=== PATIENT | female | born 1955 | race Caucasian/White ===

== ENCOUNTER 2020-02-10 17:34 | Emergency (ER) | payer MEDICARE ==
[~2020-02-10] VITALS: Ht 170.2 cm; Wt 84.1 kg
[~2020-02-10 17:34] MED LIST: HYDR200T72 PO; TRAM50TA2 PO
[2020-02-10] MEDS ORDERED: PLEASE ENTER HEIGHT AND WEIGHT MC SCH (18:00)
[2020-02-10] MEDS ORDERED: HYDROcodone/APAP 5/325 TABLET PO PRN (18:00)
[2020-02-10 19:11] VITALS: BP 168/97
[2020-02-10] MEDS ORDERED: OXYcodone/APAP 5/325MG TABLET PO ONE (20:00)
[2020-02-10] MEDS ORDERED: OXYcodone/APAP 5/325MG TABLET ONE (20:13)
[2020-02-10] MEDS ORDERED: HYDROcodone/APAP 5/325 TABLET ONE (20:20)
== END 2020-02-10 20:28 | disposition home or self-care (01) ==
LOC: ED 18:45
DX: S82.042A Displaced comminuted fracture of left patella, initial encounter for closed fracture (principal); S80.01XA Contusion of right knee, initial encounter; F17.210 Nicotine dependence, cigarettes, uncomplicated; W10.9XXA Fall (on) (from) unspecified stairs and steps, initial encounter; Y93.89 Activity, other specified; Y92.009 Unspecified place in unspecified non-institutional (private) residence as the place of occurrence of the external cause; Y99.8 Other external cause status
CPT/HCPCS: 29505; 87635; 99284; 99406

== ENCOUNTER 2020-09-28 09:42 | Inpatient (IN) | payer MEDICARE ==
[~2020-09-28] VITALS: Ht 172.7 cm; Wt 76.6 kg
--- NOTE | 2020-09-28 09:54 | NUR ---
PT BIB [facility]. PT HAD GLF ON TUESDAY AND FELL ON RIGHT KNEE. PT HAD SURGERY ON RIGHT PATELLA IN 2019. RIGHT KNEE SWELLING NOTED AND PT STATED THAT IT IS SO PAINFUL SHE HAS NOT BEEN ABLE TO WALK ON IT. PT WEARING OLD KNEE BRACE FROM PRIOR SURGERY. PT DENIES ANY NUMBESS/TINGLING. POSITIVE CMS IN RIGHT FOOT.
--- NOTE | 2020-09-28 10:23 | NUR ---
PT TO XRAY
[2020-09-28] MEDS ORDERED: MORPHINE SULFATE 4 MG/ML, 1ML ONE (10:49)
[2020-09-28] MEDS ORDERED: ONDANSETRON 2MG/ML, 2ML ONE (10:49)
--- NOTE | 2020-09-28 10:50 | NUR ---
PT BACK FROM X RAY. PT CO SEVERE PAIN. PAIN MEDICATIONS GIVEN PER MD ORDER.
[2020-09-28] MEDS ORDERED: ONDANSETRON 2MG/ML, 2ML IVPush ONE (11:00)
[2020-09-28] MEDS ORDERED: SODIUM CHLORIDE 0.9% 1,000 ML IV ONE (11:00)
[2020-09-28] MEDS ORDERED: MORPHINE SULFATE 4 MG/ML, 1ML IVPush PRN (11:00)
[2020-09-28 11:17] LABS: BASOPHILS % (AUTO) 1 % (0-1); EOSINOPHILS % (AUTO) 0 % (1-7); LYMPHOCYTES % (AUTO) 18 % (22-44); MEAN CORPUSCULAR HEMOGLOBIN 32.2 pg (27.0-34.8); MEAN CORPUSCULAR HGB CONC 33.7 g/dL (32.4-35.8); MEAN PLATELET VOLUME 8.2 fL (7.4-10.4); MONOCYTES % (AUTO) 8 % (2-9); NEUTROPHILS % (AUTO) 73 % (42-75); PLATELET COUNT 234 x10^3/uL (130-400); RED BLOOD COUNT 4.55 x10^6/uL (3.82-5.3); RED CELL DISTRIBUTION WIDTH 13.1 % (9.6-15.2)
[2020-09-28 11:23] LABS: MD NO
[2020-09-28 11:26] LABS: ALBUMIN 4.1 g/dL (3.4-5.0); ANION GAP 7 mmol/L (5-15); CALCIUM 9.6 mg/dL (8.5-10.1); CHLORIDE 104 mmol/L (98-107); CREATININE 0.72 mg/dL (0.55-1.02)
[2020-09-28] MEDS ORDERED: SODIUM CHLORIDE FLUSH 10ML SYR IVF PRN (11:30)
[2020-09-28 11:37] LABS: MICROSCOPIC INDICATED
--- NOTE | 2020-09-28 11:50 | NUR ---
REPORT GIVEN TO [facility]U.
[2020-09-28 12:15] VITALS: BP 142/54
[2020-09-28] MEDS ORDERED: HYDROmorphone 2 MG/ML, 1ML IVPush PRN (12:30)
[2020-09-28] MEDS ORDERED: SODIUM CHLORIDE 0.9% 1,000 ML IV SCH (13:00)
[2020-09-28] MEDS ORDERED: ACETAMINOPHEN 325 MG TABLET PO PRN (13:00)
[2020-09-28] MEDS ORDERED: ONDANSETRON 2MG/ML, 2ML IVPush PRN (13:00)
[2020-09-28] MEDS ORDERED: TRAZ-96 PO (13:10)
[2020-09-28] MEDS: SODIUM CHLORIDE 0.9% 1,000 ML IV SCH (17:46)
[2020-09-28] MEDS: morphine SULFATE 10 MG/ML, 1ML IVPush PRN ×2 (17:46→21:27)
[2020-09-28 19:34] VITALS: BP 158/79
[2020-09-28] MEDS ORDERED: PROMETHAZINE 25 MG/ML, 1ML ONE (20:51)
[2020-09-28] MEDS: PROMETHAZINE 25 MG/ML, 1ML IM PRN (20:54)
[2020-09-29] MEDS ORDERED: MORPHINE SULFATE 4 MG/ML, 1ML ONE (01:22)
[2020-09-29] MEDS: morphine SULFATE 10 MG/ML, 1ML IVPush PRN (01:24)
[2020-09-29] MEDS: PROMETHAZINE 25 MG/ML, 1ML IM PRN ×2 (03:33→08:17)
[2020-09-29 03:36] LABS: BASOPHILS % (AUTO) 1 % (0-1); EOSINOPHILS % (AUTO) 0 % (1-7); LYMPHOCYTES % (AUTO) 35 % (22-44); MEAN CORPUSCULAR HEMOGLOBIN 32.1 pg (27.0-34.8); MEAN CORPUSCULAR HGB CONC 33.4 g/dL (32.4-35.8); MEAN PLATELET VOLUME 8.1 fL (7.4-10.4); MONOCYTES % (AUTO) 11 % (2-9); NEUTROPHILS % (AUTO) 52 % (42-75); PLATELET COUNT 214 x10^3/uL (130-400); RED BLOOD COUNT 4.06 x10^6/uL (3.82-5.3); RED CELL DISTRIBUTION WIDTH 12.9 % (9.6-15.2)
[2020-09-29 03:38] LABS: MD NO
[2020-09-29] MEDS ORDERED: HYDROmorphone 2 MG/ML, 1ML ONE (03:39)
[2020-09-29] MEDS: HYDROmorphone 2 MG/ML, 1ML IVPush PRN ×3 (03:42→15:39)
[2020-09-29] MEDS: SODIUM CHLORIDE 0.9% 1,000 ML IV SCH ×2 (03:43→21:27)
[2020-09-29 03:44] LABS: ALANINE AMINOTRANSFERASE 43 U/L (12-78); ALBUMIN 3.3 g/dL (3.4-5.0); ANION GAP 5 mmol/L (5-15); CALCIUM 9.4 mg/dL (8.5-10.1); CHLORIDE 107 mmol/L (98-107); CREATININE 0.53 mg/dL (0.55-1.02)
[2020-09-29 03:47] LABS: ALKALINE PHOSPHATASE 52 U/L (45-117); BILIRUBIN,TOTAL 0.8 mg/dL (0.2-1.0)
[2020-09-29 03:49] VITALS: BP 156/74
[2020-09-29 06:20] VITALS: BP 146/63
[2020-09-29] MEDS ORDERED: FENTANYL PF 250 MCG/5ML ONE (12:03)
[2020-09-29] MEDS ORDERED: PROPOFOL 50 ML ONE (12:03)
[2020-09-29] MEDS ORDERED: DEXAMETHASONE 4 MG/ML, 1ML ONE (12:16)
[2020-09-29] MEDS ORDERED: CEFAZOLIN 1,000 MG ONE (12:16)
[2020-09-29] MEDS ORDERED: EPHEDRINE 50 MG/ML, 1ML IM PRN (12:30)
[2020-09-29] MEDS ORDERED: LABETALOL 5MG/ML, 20ML IV PRN (12:30)
[2020-09-29] MEDS ORDERED: EPHEDRINE 50 MG/ML, 1ML IVPush PRN (12:30)
[2020-09-29] MEDS ORDERED: PROMETHAZINE 25 MG/ML, 1ML IVPush PRN (12:30)
[2020-09-29] MEDS ORDERED: ONDANSETRON 2MG/ML, 2ML IVPush PRN (12:30)
[2020-09-29] MEDS ORDERED: morphine SULFATE 10 MG/ML, 1ML IVPush PRN (12:30)
[2020-09-29] MEDS ORDERED: DIPHENHYDRAMINE 50 MG/ML, 1ML IVPush PRN (12:30)
[2020-09-29] MEDS ORDERED: MEPERIDINE/PF 25MG/0.5ML IVPush PRN (12:30)
[2020-09-29] MEDS ORDERED: OXYcodone 5 MG/5 ML ORAL.SOL UDC PO PRN (12:30)
[2020-09-29] MEDS ORDERED: ACETAMINOPHEN 325 MG TABLET PO PRN (12:30)
[2020-09-29] MEDS ORDERED: PROPOFOL 10 MG/ML, 20ML ONE (12:54)
[2020-09-29] MEDS ORDERED: ONDANSETRON 2MG/ML, 2ML ONE (12:55)
[2020-09-29] MEDS ORDERED: OXYcodone 5 MG/5 ML ORAL.SOL UDC ONE (12:58)
[2020-09-29] MEDS ORDERED: MEPERIDINE/PF 25MG/ML,1ML ONE (12:58)
[2020-09-29] MEDS ORDERED: FENTANYL PF 100 MCG/2ML ONE ×2 (13:08→13:40)
[2020-09-29] MEDS: FENTANYL PF 100 MCG/2ML IV PRN ×4 (13:10→13:50)
[2020-09-29] MEDS ORDERED: KETOROLAC 30 MG/1 ML ONE (13:17)
[2020-09-29] MEDS ORDERED: HYDROmorphone 1 MG/ML, 1ML INJ ONE (13:17)
[2020-09-29] MEDS ORDERED: DIAZEPAM 5 MG/ML, 2ML ONE (13:23)
[2020-09-29] MEDS: DIAZEPAM 5 MG/ML, 2ML IVPush PRN ×2 (13:25→13:35)
[2020-09-29] MEDS ORDERED: hydrALAzine 20 MG/ML, 1ML ONE (13:35)
[2020-09-29] MEDS: HYDROmorphone 1 MG/ML, 1ML INJ IVPush PRN ×2 (13:55→14:00)
[2020-09-29] MEDS ORDERED: hydrALAzine 20 MG/ML, 1ML IV PRN (14:00)
[2020-09-29] MEDS ORDERED: KETOROLAC 30 MG/1 ML IVPush ONE (14:30)
[2020-09-29] MEDS ORDERED: ONDANSETRON 2MG/ML, 2ML IV PRN (15:30)
[2020-09-29] MEDS ORDERED: HYDROcodone/APAP 7.5-325MG/15ML UDC PO PRN (15:30)
[2020-09-29] MEDS ORDERED: HYDROmorphone 2 MG/ML, 1ML IVPush PRN (15:30)
[2020-09-29 15:45] VITALS: BP 105/59
[2020-09-29] MEDS: OXYcodone/APAP 5/325MG TABLET PO PRN ×2 (18:57→22:57)
[2020-09-29 20:02] VITALS: BP 124/56
[2020-09-29] MEDS: KETOROLAC 30 MG/1 ML IV SCH (21:04)
[2020-09-29] MEDS: CEFAZOLIN PMX 1GM/50ML 50 ML IVPB SCH (21:04)
[2020-09-29] MEDS: DOCUSATE 100 MG CAPSULE PO SCH (21:04)
[2020-09-29] MEDS: SODIUM CHLORIDE FLUSH 10ML SYR IVF SCH (21:04)
[2020-09-29 23:41] VITALS: BP 129/68
[2020-09-30] MEDS: CEFAZOLIN PMX 1GM/50ML 50 ML IVPB SCH (05:10)
[2020-09-30] MEDS: KETOROLAC 30 MG/1 ML IV SCH (05:11)
[2020-09-30 05:29] LABS: BASOPHILS % (AUTO) 1 % (0-1); EOSINOPHILS % (AUTO) 1 % (1-7); LYMPHOCYTES % (AUTO) 35 % (22-44); MEAN CORPUSCULAR HEMOGLOBIN 32.7 pg (27.0-34.8); MEAN CORPUSCULAR HGB CONC 34.2 g/dL (32.4-35.8); MEAN PLATELET VOLUME 8.1 fL (7.4-10.4); MONOCYTES % (AUTO) 11 % (2-9); NEUTROPHILS % (AUTO) 53 % (42-75); PLATELET COUNT 175 x10^3/uL (130-400); RED BLOOD COUNT 3.52 x10^6/uL (3.82-5.3); RED CELL DISTRIBUTION WIDTH 13.1 % (9.6-15.2)
[2020-09-30 05:31] LABS: MD NO
[2020-09-30 05:33] LABS: ALANINE AMINOTRANSFERASE 38 U/L (12-78); ALBUMIN 2.8 g/dL (3.4-5.0); ANION GAP 5 mmol/L (5-15); CALCIUM 8.5 mg/dL (8.5-10.1); CHLORIDE 107 mmol/L (98-107); CREATININE 0.42 mg/dL (0.55-1.02)
[2020-09-30 05:35] LABS: ALKALINE PHOSPHATASE 43 U/L (45-117); BILIRUBIN,TOTAL 1.7 mg/dL (0.2-1.0)
[2020-09-30] MEDS ORDERED: ASPIRIN 81 MG TABLET EC PO SCH (06:00)
[2020-09-30] MEDS ORDERED: ENOXAPARIN 40 MG/0.4 ML SQ SCH (06:00)
[2020-09-30 07:22] VITALS: BP 160/70
[2020-09-30] MEDS: OXYcodone/APAP 5/325MG TABLET PO PRN ×3 (08:38→15:54)
[2020-09-30] MEDS: DOCUSATE 100 MG CAPSULE PO SCH (08:38)
[2020-09-30] MEDS: SODIUM CHLORIDE FLUSH 10ML SYR IVF SCH (08:38)
[2020-09-30 13:20] VITALS: BP 168/77
[2020-09-30] MEDS ORDERED: OXYC1TAB14 PO (14:24)
[2020-09-30] MEDS ORDERED: ASPI325T20 PO (14:24)
[2020-09-30] MEDS ORDERED: ASPI81TA45 PO (14:49)
== END 2020-09-30 16:27 | disposition home or self-care (01) | DRG 482 ==
LOC: ED 09:55 → EDIP 11:11 → 4NE 12:00 → DCLOUNGE 09-30 16:15
PROVIDERS: ADMIT Internal Medicine; ATTEND Internal Medicine
PROC: 0QSB04Z Reposition Right Lower Femur with Internal Fixation Device, Open Approach (ICD-10-PCS; principal; 2020-09-29 14:30)
DX: S72.431A Displaced fracture of medial condyle of right femur, initial encounter for closed fracture (principal); Z85.828 Personal history of other malignant neoplasm of skin; F17.210 Nicotine dependence, cigarettes, uncomplicated; J44.9 Chronic obstructive pulmonary disease, unspecified; D72.829 Elevated white blood cell count, unspecified; R73.9 Hyperglycemia, unspecified; W01.198A Fall on same level from slipping, tripping and stumbling with subsequent striking against other object, initial encounter; S72.421A Displaced fracture of lateral condyle of right femur, initial encounter for closed fracture; Y92.098 Other place in other non-institutional residence as the place of occurrence of the external cause; Y99.8 Other external cause status; Z20.822 Contact with and (suspected) exposure to COVID-19; Y93.01 Activity, walking, marching and hiking
CPT/HCPCS: 36415; 71045; 76000; 80048; 80053; 81001; 82040; 85025; 87086; 87635; 93005; 96374; 96375; C1713; G0378; J0690; J1100; J1170; J1650; J1885; J2175; J2405; J2550; J2704; J3010; J3360; J0360; J2270; J7030